=== PATIENT | male | born 1960 | race Caucasian/White ===

== ENCOUNTER → 2020-10-27 11:41 | Outpatient (CLI) | payer OTHER, SELFPAY ==
--- NOTE | ~2020-10-27 | XR_ITS ---
EXAMINATION: XR ankle RT min 3V, XR tibia fibula RT 2V DATE: 10/27/2020 12:16 INDICATION: Medial right ankle and lower leg pain TECHNIQUE: 1. Anteroposterior and lateral views of the right lower leg were obtained. 2. Anteroposterior, oblique, mortise, and lateral views of the right ankle were obtained. COMPARISON: None. FINDINGS: No acute fractures. Old healed fracture deformities at the distal diaphyses of the right tibia and fi bula. The fibular fracture is healed in near-anatomic alignment. The tibial fracture has healed with some posterior and lateral displacement and anterior and medial angulation. Alignment at the knee, an kle and visualized mid and hindfoot remain normal. There is mild likely secondary osteoarthritis at t he right ankle. Additional mild osteoarthritis at a few of the tarsal metatarsal joints. Small planta r calcaneal spur. No right ankle joint effusion. IMPRESSION: 1. Mild osteoarthritis at the right ankle and a few tarsal metatarsal joints. 2. Residual old healed fracture deformities at the distal metaphyses of the right tibia and fibula. Reviewed, dictated and finalized at location A. IMPRESSION: 1. Mild osteoarthritis at the right ankle and a few tarsal metatarsal joints. 2. Residual old healed fracture deformities at the distal metaphyses of the rig ht tibia and fibula.
== END ==
PROVIDERS: PCP Nurse Practitioner; Visit Provider Nurse Practitioner
DX: M19.071 Primary osteoarthritis, right ankle and foot (principal)
CPT/HCPCS: 73590; 73610